=== PATIENT | female | born 1950 | race Native Hawaiian/Other Pacific Islander ===

== ENCOUNTER 2017-05-16 11:48 | Outpatient (CLI) | payer OTHER ==
[~2017-05-16 11:48] MED LIST: ADLT ASA LOW81 MG PO; ALBU90AE13 INH; ALBUTEROL0.083 % IN; AMOX875T8 PO; CLARITIN10 MG PO; HYZAAR1 TA2 PO; LORA10TA3 PO; METF500T PO; PRAV40TA PO; PRED10TA27 PO; UNITHROID75 MCG PO; VITAMIN CODE PO
== END 2017-05-16 19:09 | disposition home or self-care (01) ==
LOC: RESP 11:48
DX: J44.9 Chronic obstructive pulmonary disease, unspecified (principal)
CPT/HCPCS: 94640; 94664